=== PATIENT | male | born 1965 | race Two or more races ===

== ENCOUNTER 2017-05-30 08:03 | Day surgery (SDC) | payer MEDICARE, OTHER ==
[~2017-05-30] VITALS: Ht 167.6 cm; Wt 90.3 kg
[~2017-05-30 08:03] MED LIST: AMIT25; AMLO10; ASPI325 PO; CARV25 PO; Depo-Testos200 MG/ML IM; ESCI10; HYDCHL25 PO; LISI20 PO; LOVA20 PO; MELO7.5 PO; METPRE4DP PO; Norco 5-325 Ta1 EACH PO; OXYC10ER; OXYC10ER PO; PARO10; POTCHL20ER; SIMV80 PO; TERB2.5; TERB2.5 PO; THEO100ERB PO; THEO200ERB; VITAMIN D2400 UNIT PO
[2017-05-30] MEDS ORDERED: CLOP75 (08:33)
== END 2017-05-30 09:49 | disposition home or self-care (01) ==
LOC: ORSCSDS 08:03
PROVIDERS: Internal Medicine Gastroenterology
PROC: 0DBP8ZX Excision of Rectum, Via Natural or Artificial Opening Endoscopic, Diagnostic (ICD-10-PCS; principal; 2017-05-30 09:15)
DX: Z12.11 Encounter for screening for malignant neoplasm of colon (principal); K62.1 Rectal polyp; K64.8 Other hemorrhoids; K57.30 Diverticulosis of large intestine without perforation or abscess without bleeding; E78.00 Pure hypercholesterolemia, unspecified; E78.5 Hyperlipidemia, unspecified; F32.9 Major depressive disorder, single episode, unspecified; F17.210 Nicotine dependence, cigarettes, uncomplicated; Z86.73 Personal history of transient ischemic attack (TIA), and cerebral infarction without residual deficits; Z79.01 Long term (current) use of anticoagulants; Z79.82 Long term (current) use of aspirin; Z79.899 Other long term (current) drug therapy
CPT/HCPCS: 88305